=== PATIENT | female | born 1935 | race Two or more races ===

== ENCOUNTER 2023-03-28 18:01 | Inpatient (IN) | payer OTHER ==
[~2023-03-28] VITALS: Ht 157.5 cm; Wt 5216.3 kg
[2023-03-28] MEDS ORDERED: QUETIAPINE FUM100 MG PO (18:24)
[2023-03-28] MEDS ORDERED: MEMANTINE HCL10 MG PO (18:24)
[2023-03-28] MEDS ORDERED: RESTORIL15 MG PO (18:24)
[2023-03-28] MEDS ORDERED: LEVOTHYROXINE112 MCG PO (18:24)
[2023-03-28] MEDS ORDERED: ATENOLOL50 MG PO (18:24)
[2023-03-28 19:06] LABS: PH,URINE 7.5 (5.0-8.0); URINE APPEARANCE Cloudy; URINE BILIRRUBIN Negative (NEGATIVE); URINE BLOOD Small; URINE COLOR Yellow; URINE LEUKOCYTE Negative; URINE NITRATE Negative; URINE PROTEIN Trace (NEGATIVE); URINE UROBILINOGEN 0.2 E.U./dl
[2023-03-28 19:09] LABS: URINE BACTERIA 6337.7 uL (0.0-1933); URINE EPITHELIAL CELLS 13.9 uL (0.0-38.8); URINE RBC 251.3 uL (0.0-20.8); URINE WBC 11.4 uL (0.0-23.2)
[2023-03-28 19:10] LABS: URINE GLUCOSE 100 MG/DL (NEGATIVE)
[2023-03-28 19:10] LABS: HEMATOCRIT 39.7 % (36.0-45.00); HEMOGLOBIN 13.6 g/dL (12.0-15.00); MEAN CELL VOLUME 87.1 fL (80.00-100.00); MEAN CORPUSCULAR HEMOGLOBIN 29.8 pg (27.00-32.0); MEAN CORPUSCULAR HGB CONC 34.2 g/dl (32.0-36.0); PLATELET COUNT 195 K/uL (150-450); RED BLOOD COUNT 4.56 M/uL (4.00-6.00); RED CELL DISTRIBUTION WIDTH 14.4 % (11.5-14.5)
[2023-03-28 19:36] LABS: BILIRUBIN TOTAL 0.6 mg/dL (0.3-1.2); CALCIUM 8.4 mg/dL (8.5-10.1); CREATININE SERUM 0.97 mg/dL (0.55-1.02); GFR 54.58; GLOBULINA 3.7 G/DL (2.4-3.5); POTASSIUM 3.54 mEq/L (3.5-5.1); TOTAL PROTEIN 7.7 gm/dL (6.4-8.2)
[2023-03-28 22:23] LABS: INR 0.95; PARTIAL THROMBOPLASTIN TIME 22.5 SECONDS (22.0-34.0)
[2023-03-29 04:12] LABS: CHOL HDL RATIO 2.7 (0-5.0); TSH 0.41 uIU/mL (0.358-3.74)
[2023-03-29 15:20] LABS: CKMB 8.7 NG/ML (0.5-3.6)
[2023-04-02] MEDS ORDERED: AMLODIPINE BESY10 MG PO (09:25)
[2023-04-02] MEDS ORDERED: TOPROL XL25 M1 PO (09:25)
[2023-04-02] MEDS ORDERED: LIPITOR40 M1 PO (09:25)
[2023-04-02] MEDS ORDERED: COZAAR50 MG PO (09:25)
[2023-04-02] MEDS ORDERED: ADULT ASPIRIN81 MG PO (09:25)
[2023-04-02] MEDS ORDERED: RESTORIL15 MG PO (09:26)
[2023-04-02] MEDS ORDERED: NAMENDA10 MG PO (09:26)
[2023-04-02] MEDS ORDERED: QUETIAPINE FUM100 MG PO (09:26)
[2023-04-02] MEDS ORDERED: PANTOPRAZOLE SO40 MG PO (09:27)
[2023-04-02] MEDS ORDERED: LEVOTHYROXINE112 MCG PO (09:27)
[2023-04-02] MEDS ORDERED: LEVOFLOXACIN750 MG PO (09:28)
== END 2023-04-02 14:39 | disposition home or self-care (01) | DRG 282 ==
LOC: ER 18:01 → ICU 22:12 → ICU-2 22:12 → ICU 03-29 00:57 → MEDJ 04-01 19:18
PROVIDERS: General Practice; Internal Medicine; ADMIT Internal Medicine; ATTEND Internal Medicine
PROC: B246ZZZ Ultrasonography of Right and Left Heart (ICD-10-PCS; principal; 2023-03-28)
PROC: 4A12X4Z Monitoring of Cardiac Electrical Activity, External Approach (ICD-10-PCS; 2023-04-01)
DX: I21.4 Non-ST elevation (NSTEMI) myocardial infarction (principal); I16.0 Hypertensive urgency; I50.9 Heart failure, unspecified; I11.0 Hypertensive heart disease with heart failure